=== PATIENT | female | born 2000 | race Caucasian/White ===

== ENCOUNTER 2023-03-01 18:22 | Inpatient (IN) ==
[2023-03-01 19:45] LABS: ABS Eosinophils 0.1 10^3/uL (0.0-0.5); ABS Lymphocytes 1.5 10^3/uL (1.0-4.8); ABS Neutrophils 6.2 10^3/uL (1.5-7.6); ABS Nucleated RBC 0.01 10^3/ul; Eosinophil % 1.3 %; Hematocrit 42.2 % (35-45); Hemoglobin 14.5 g/dL (11.5-14.3); Lymphocyte % 16.7 %; Mean Corpuscular Hemoglobin 30.6 pg (27-33); Mean Corpuscular Hgb Conc 34.4 g/dL (31-36); Mean Corpuscular Volume 88.8 fL (80-97); Nucleated Red Blood Cells % 0.2 %/100WBC (0.0-0.8); Platelet Count 261 10^3/uL (150-450); Red Blood Count 4.75 10^6/uL (3.63-4.92); Red Cell Distribution Width 12.5 % (12-17); White Blood Count 8.7 10^3/uL (3.8-11.8)
[2023-03-01 19:47] LABS: Urine Appearance Clear; Urine Bilirubin Negative (Negative); Urine Blood Negative (Negative); Urine Color Amber; Urine Glucose Negative (Negative); Urine Ketones Negative (Negative); Urine Nitrite Negative (Negative); Urine Protein 1+(30 mg/dL) (Negative); Urine Urobilinogen Positive (Negative)
[2023-03-01 20:02] LABS: Urine Bacteria Absent (Absent); Urine Red Blood Cell 2+(6-10/hpf) (Absent); Urine Squamous Epithelial Cell Present (Absent); Urine White Blood Cell Trace(0-5/hpf) (Absent)
[2023-03-01 20:15] LABS: ALT 29 U/L (7-52); AST 19 U/L (13-39); Albumin 4.5 g/dL (3.2-5.2); Albumin/Globulin Ratio 1.1 (1-3); Alkaline Phosphatase 61 U/L (35-149); Anion Gap 6 mmol/L (2-16); Blood Urea Nitrogen 15 mg/dL (6-24); CO2 Carbon Dioxide 25 mmol/L (22-32); Chloride 105 mmol/L (101-111); Creatinine, Serum 0.69 mg/dL (0.51-0.95); Globulin 4.1 g/dL (2-4); Glucose 90 mg/dL (70-100); Potassium 3.5 mmol/L (3.5-5.0); Sodium 136 mmol/L (135-145); Total Bilirubin 0.4 mg/dL (0.2-1.0); Total Protein 8.6 g/dL (6.4-8.9); eGFR CKD-EPI 126.5 (>60)
[2023-03-01 20:18] LABS: Urine Benzodiazepine Screen None Detected (None Detect); Urine Cannabinoids Screen Presumptive Positive (None Detect); Urine Opiates Screen None Detected (None Detect)
[2023-03-01 20:22] LABS: HCG Pregnancy 0.78 mIU/mL
[2023-03-01 20:30] LABS: TSH Ultra Thyroid Stim Horm 4.41 mcIU/mL (0.34-5.60)
[2023-03-01 20:50] LABS: Acetaminophen 0 mcg/mL; Alcohol, S < 13 mg/dL (<13)
[2023-03-01 20:52] LABS: Salicylate < 2.50 mg/dL (<30)
[2023-03-01] MEDS ORDERED: Al Hydrox/Mg Hydrox/Simet LIQ 30 ML UDC PO PRN (22:52)
[2023-03-02] MEDS ORDERED: Albuterol HFA INHALER 8 gm MDI INH PRN (13:27)
[2023-03-02] MEDS: Vitamin THERAPEUTIC TAB PO SCH (15:55)
[2023-03-03 07:59] VITALS: BP 121/64
[2023-03-03] MEDS: Vitamin THERAPEUTIC TAB PO SCH (09:05)
== END 2023-03-03 14:40 | disposition home or self-care (01) | DRG 751 ==
LOC: ED 18:22 → EDHOLD 23:22 → BSU 23:33
PROVIDERS: ADMIT Psychiatry & Neurology Psychiatry; ATTEND Psychiatry & Neurology Psychiatry